=== PATIENT | male | born 1950 | race Caucasian/White ===

== ENCOUNTER 2017-11-11 15:52 | Emergency (ER) | payer MEDICARE ==
[~2017-11-11] VITALS: Ht 177.8 cm; Wt 74.8 kg
[2017-11-11 19:03] VITALS: BP 116/66
[2017-11-11] MEDS ORDERED: CEPH500C PO (19:16)
[2017-11-11] MEDS ORDERED: IBUP-1060 PO (19:19)
--- NOTE | 2017-11-11 19:19 | PHYS DOC ---
Past Medical History Past Medical History: No Pertinent History Past Surgical History: Hip Replacement, Other Additional Past Surgical Histo: BILATERAL HIP, LEFT KNEE Alcohol Use: None Drug Use: None Adult General Chief Complaint Chief Complaint: ABSCESS HPI HPI Patient is a 67 year old presents the ED complaining of left elbow swelling 1 week. States that he went to his primary care doctor's office and they gave him antibiotics. He did not get them filled. 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 Denies decreased ROM, weakness, paresthesias, fever, nausea/ vomiting, neck pain, chest pain or shortness of breath. Review of Systems Review of Systems Constitutional: Denies fever or chills [] Eyes: Denies change in visual acuity, redness, or eye pain [] HENT: Denies nasal congestion or sore throat [] Respiratory: Denies cough or shortness of breath [] Cardiovascular: No additional information not addressed in HPI [] GI: Denies abdominal pain, nausea, vomiting, bloody stools or diarrhea [] : Denies dysuria or hematuria [] Musculoskeletal: Complains of left elbow swelling. Denies back pain. Integument: Denies rash or skin lesions [] Neurologic: Denies headache, focal weakness or sensory changes [] All other systems were reviewed and found to be within normal limits, except as documented in this note. Allergies Allergies Allergies Coded Allergies Type Severity Reaction Last Updated Verified No Known Drug Allergies 11/11/17 No Physical Exam Physical Exam Constitutional: Well developed, well nourished, no acute distress, non-toxic appearance. [] HENT: Normocephalic, atraumatic Skin: Warm, dry, no erythema, no rash. [] Back: No tenderness, no CVA tenderness. [] Extremities: Swelling to left posterior elbow consistent with olecranon bursitis. No bony tenderness, no cyanosis, no clubbing, ROM intact, NV intact. no edema. [] Neurologic: Alert and oriented X 3, normal motor function, normal sensory function, no focal deficits noted. [] Psychologic: Affect normal, judgement normal, mood normal. [] Current Patient Data Vital Signs Vital Signs Date Time Temp Pulse Resp B/P (MAP) Pulse Ox O2 Delivery O2 Flow Rate FiO2 11/11/17 19:03 99.7 104 18 116/66 (83) 97 Room Air 99.7 EKG EKG [] Radiology/Procedures Radiology/Procedures [] Course & Med Decision Making Course & Med Decision Making Pertinent Labs and Imaging studies reviewed. (See chart for details) []Olecranon bursitis on exam. FROM,. NV intact. No abscess or systemic symptoms. Will prescribe Keflex outpatient. Morris wrap placed. Neurovascular intact post placement. Discussed symptomatic treatment and follow-up with orthopedics for further evaluation this week. Provided contact information/ education. Discussed reasons to return to the ED. Patient understands and agrees with plan. Attending physician evaluated patient and agrees with evaluation and plan. ER PHYSICIAN ATTENDING NOTE: I have personally seen and examined the patient, and agree with the history and physical, as documented by mid-level provider. The patient exhibits signs of olecranon bursitis without any suggestion or evidence of abscess or septic bursitis Dragon Disclaimer Dragon Disclaimer This electronic medical record was generated, in whole or in part, using a voice recognition dictation system. Departure Departure Impression: Primary Impression: Olecranon bursitis Disposition: HOME, SELF-CARE Condition: IMPROVED Referrals: SEE VILLARREAL (PCP) Patient Instructions: Olecranon Bursitis Scripts Ibuprofen (IBUPROFEN) 800 Mg Tablet 800 MG PO PRN Q6HRS PRN for INFLAMMATION, #14 TAB Prov: LULI MSITH 11/11/17 Cephalexin (CEPHALEXIN) 500 Mg Capsule 1 CAP PO QID for 10 Days, #40 CAP Prov: LULI SMITH 11/11/17 LULI SMITH Nov 11, 2017 19:19 SAUMYA OBRIEN MD Nov 12, 2017 04:06
== END 2017-11-11 19:27 | disposition home or self-care (01) ==
LOC: ER 15:52
DX: M70.22 Olecranon bursitis, left elbow (principal); Y93.89 Activity, other specified
CPT/HCPCS: 99283

== ENCOUNTER 2019-04-28 05:51 | Emergency (ER) | payer MEDICARE ==
[~2019-04-28] VITALS: Ht 177.8 cm; Wt 75.0 kg
[~2019-04-28 05:51] MED LIST: CEPH500C PO; IBUP-1060 PO
--- NOTE | 2019-04-28 06:54 | PHYS DOC ---
Past Medical History Past Medical History: No Pertinent History Past Surgical History: Hip Replacement, Other Additional Past Surgical Histo: BILATERAL HIP, LEFT KNEE Alcohol Use: None Drug Use: None Adult General Chief Complaint Chief Complaint: KNEE INJURY [facility] HPI Patient is a 68 year old male presented to ER today for evaluation of left knee pain. Patient said he was walking last night and slipped , fell down on his left knee. Patient complaints of left knee pain ever since. Patient denies any head or neck injury, no hip pain, no pelvic pain, no back pain. All other ROS is negative unless otherwise noted in HPI Review of Systems Review of Systems See above Current Medications Current Medications Current Medications Medications (Trade) Dose Ordered Sig/Dalia Start Time Stop Time Status Last Admin Dose Admin Acetaminophen (Tylenol) 1,000 mg 1X ONCE 04/28/19 08:30 04/28/19 08:31 DC 04/28/19 08:47 1,000 MG Ibuprofen (Motrin) 600 mg 1X ONCE 04/28/19 08:30 04/28/19 08:31 DC 04/28/19 08:48 600 MG Ondansetron HCl (Zofran Odt) 4 mg 1X ONCE 04/28/19 08:30 04/28/19 08:31 DC 04/28/19 08:46 4 MG Allergies Allergies Allergies Coded Allergies Type Severity Reaction Last Updated Verified No Known Drug Allergies 11/11/17 No Physical Exam Physical Exam See above Constitutional: Well developed, well nourished, no acute distress, non-toxic appearance. [] HENT: Normocephalic, atraumatic, bilateral external ears normal, oropharynx moist, no oral exudates, nose normal. [] Eyes: PERRLA, EOMI, conjunctiva normal, no discharge. [] Neck: Normal range of motion, no tenderness, supple, no stridor. [] Cardiovascular:Heart rate regular rhythm, no murmur [] Lungs & Thorax: Bilateral breath sounds clear to auscultation [] Abdomen: Bowel sounds normal, soft, no tenderness, no masses, no pulsatile masses. [] Skin: Warm, dry, no erythema, no rash. [] Back: No tenderness, no CVA tenderness. [] Extremities: Left knee is mildly swollen, tender to palpation, no deformity noted, no hematoma, left knee joint is stable. Neurologic: Alert and oriented X 3, normal motor function, normal sensory function, no focal deficits noted. [] Psychologic: Affect normal, judgement normal, mood normal. [] Current Patient Data Vital Signs Vital Signs Date Time Temp Pulse Resp B/P (MAP) Pulse Ox O2 Delivery O2 Flow Rate FiO2 04/28/19 08:14 82 165/90 (115) 99 Room Air 04/28/19 07:10 98.3 18 98.3 EKG EKG [] Radiology/Procedures Radiology/Procedures [][facility] [address] [place] [address] IMAGING REPORT Signed PATIENT: MIKE DUEÑAS ACCOUNT: [id number] : 1950 LOCATION: ER AGE: 68 SEX: M EXAM STATUS: REG ER ORD. PHYSICIAN: WILLIAM HERNANDEZ DO REASON: fell last night on left knee, pain PROCEDURE: KNEE LEFT 3V 3 views left knee 04/28/2019 6:51 AM Indication: Trauma Comparison: Left knee radiographs December 08, 2017 Findings: No evidence of acute fracture or dislocation is identified. Total knee arthroplasty noted. Hardware appears stable in position without evidence of fracture or other hardware complication. No gross evidence of loosening is seen. Proximal fibular deformity is stable. Chondral calcification is similar. No gross joint effusion is identified. IMPRESSION: Stable postsurgical and posttraumatic changes without evidence of acute osseous abnormality Electronically signed by: Ryder Griffith MD (04/28/2019 7:54 AM) [id number] DICTATED and SIGNED BY: RYDER GRIFFITH MD DATE: 04/28/19 0754 Course & Med Decision Making Course & Med Decision Making Pertinent Labs and Imaging studies reviewed. (See chart for details) [] Dragon Disclaimer Dragon Disclaimer This electronic medical record was generated, in whole or in part, using a voice recognition dictation system. Departure Departure Impression: Primary Impression: Contusion of left knee Disposition: HOME, SELF-CARE Condition: STABLE Referrals: SEE VILLARREAL (PCP) follow up with your doctor next week. Patient Instructions: Contusion Additional Instructions: Thank you for visiting our Emergency Department. We appreciate you trusting us with your care. If any additional problems come up don't hesitate to return to visit us. Please follow up with your primary care provider so they can plan additional care if needed and know about the problem that you had. If symptoms worsen come back to the Emergency Department. Any concerning symptoms that start such as chest pain, shortness of air, weakness or numbness on one side of the body, running high fevers or any other concerning symptoms return to the ER. Scripts Oxycodone HCl/Acetaminophen (Percocet 5-325 mg Tablet) 1 Each Tablet 1 TAB PO PRN BID PRN for PAIN MDD 2 Tablet(s) for 2 Days, #5 TAB 0 Refills Prov: WILLIAM HERNANDEZ DO 04/28/19 Naproxen Sodium (ANAPROX DS) 550 Mg Tablet 1 TAB PO PRN BID PRN for PAIN for 15 Days, #30 TAB 0 Refills Prov: WILLIAM HERNANDEZ DO 04/28/19 WILLIAM HERNANDEZ DO Apr 28, 2019 06:54
--- NOTE | 2019-04-28 07:57 | RAD ---
3 views left knee 04/28/2019 6:51 AM Indication: Trauma Comparison: Left knee radiographs December 08, 2017 Findings: No evidence of acute fracture or dislocation is identified. Total knee arthroplasty noted. Hardware appears stable in position without evidence of fracture or other hardware complication. No gross evidence of loosening is seen. Proximal fibular deformity is stable. Chondral calcification is similar. No gross joint effusion is identified. IMPRESSION: Stable postsurgical and posttraumatic changes without evidence of acute osseous abnormality Electronically signed by: Ryder Ruiz MD (04/28/2019 7:54 AM) [id number]
[2019-04-28 08:14] VITALS: BP 165/90
[2019-04-28] MEDS ORDERED: NAPR-682 PO (08:20)
[2019-04-28] MEDS ORDERED: ONDANSETRON ODT 4 MG TAB.RAPDIS. PO ONE (08:30)
[2019-04-28] MEDS ORDERED: ACETAMINOPHEN 500 MG TABLET PO ONE (08:30)
[2019-04-28] MEDS ORDERED: IBUPROFEN 200 MG TABLET. PO ONE (08:30)
[2019-04-28] MEDS ORDERED: OXYC-325 PO (09:12)
== END 2019-04-28 08:50 | disposition home or self-care (01) ==
LOC: ER 05:51
DX: S80.02XA Contusion of left knee, initial encounter (principal); R00.2 Palpitations; Z98.890 Other specified postprocedural states; W01.0XXA Fall on same level from slipping, tripping and stumbling without subsequent striking against object, initial encounter; Y93.89 Activity, other specified; Y92.89 Other specified places as the place of occurrence of the external cause; Y99.8 Other external cause status
CPT/HCPCS: 29505; 73562; 99284; Q0162

== ENCOUNTER 2019-10-28 18:53 | Emergency (ER) | payer MEDICARE ==
[~2019-10-28 18:53] MED LIST changes: +NAPR-682 PO; +OXYC-325 PO
== END 2019-10-28 21:14 | disposition left against medical advice (07) ==
LOC: ER 18:53
DX: K64.9 Unspecified hemorrhoids (principal); K62.89 Other specified diseases of anus and rectum; Z53.21 Procedure and treatment not carried out due to patient leaving prior to being seen by health care provider

== ENCOUNTER 2019-11-18 16:43 | Emergency (ER) | payer MEDICARE ==
[~2019-11-18] VITALS: Ht 170.2 cm; Wt 73.6 kg
[2019-11-18 18:55] VITALS: BP 121/87
--- NOTE | 2019-11-18 19:53 | RAD ---
Scrotal ultrasound 11/18/2019 CLINICAL HISTORY: Scrotal discomfort. TECHNIQUE: Using a combination of real-time ultrasound imaging and color-flow and pulse Doppler imaging techniques, duplex evaluation of the scrotal sac and its contents was performed. Multiple images were obtained. FINDINGS: Both testicles are within normal limits in size. The right testicle measures 4.4 x 2.8 x 2.3 cm in longitudinal, transverse, and AP dimensions. The left testicle measures 3.8 x 2.8 x 2.1 cm in size. Normal color-flow and pulse Doppler imaging to both testicles is seen. A rounded anechoic structure is seen within the mid/inferior aspect of the right testicle which measures 5 mm in greatest diameter. This is consistent with a testicular cyst. No abnormality of the left testicle is seen. Both epididymal heads are within normal limits in size. A oval-shaped anechoic structure seen within the right epididymal head which measures 8 mm in greatest diameter. This is consistent with a cyst. No abnormality of the left epididymal head is seen. There are small bilateral hydroceles. Small bilateral varicoceles are seen. IMPRESSION: 1. 5 mm cyst is seen involving the right testicle. 2. . 8 mm cyst is seen involving the right epididymal head. 3. . Small bilateral hydroceles. 4. Small bilateral varicoceles. Electronically signed by: Americo Luna MD (11/18/2019 7:50 PM) [id number]
--- NOTE | 2019-11-18 20:01 | PHYS DOC ---
Past Medical History Past Medical History: High Cholesterol, Hypertension Past Surgical History: Hip Replacement, Other Additional Past Surgical Histo: BILATERAL HIP, LEFT KNEE, LEFT HAND, LEFT FEMUR, Smoking Status: Current Every Day Smoker Alcohol Use: None Drug Use: None General Adult EDM: Chief Complaint: HEMORRHOIDS HPI: HPI: Patient is a 69 year old male who presents to the emergency department with complaints of hemorrhoids. He states he has a history of hemorrhoids and complains of rectal pain. He denies any rectal bleeding, constipation, diarrhea, abdominal pain, nausea, vomiting, dysuria, hematuria, or difficulty voiding. The patient does report having some scrotal tenderness, he denies any swelling, erythema, or warmth to to his scrotum, he denies any bulging in his groin. The patient denies any fever, cough, shortness of breath, nausea, vomiting, or abdominal pain. He currently rates his rectal discomfort a 10 out of 10 on the pain scale and describes it as burning between his buttocks. The patient requests that someone help him apply his preparation H. Review of Systems: Review of Systems: Constitutional: Denies fever or chills. [] HENT: Denies nasal congestion or sore throat. [] Respiratory: Denies cough or shortness of breath. [] Cardiovascular: Denies chest pain or edema. [] GI: Denies abdominal pain, nausea, vomiting, bloody stools or diarrhea; see HPI. [] : Denies dysuria; see HPI. [] Musculoskeletal: Denies back pain or joint pain. [] Integument: Denies rash. [] Neurologic: Denies headache Psychiatric: Denies depression or anxiety. [] Heart Score: Risk Factors: Risk Factors: DM, Current or recent (<one month) smoker, HTN, HLP, family history of CAD, obesity. Risk Scores: Score 0 - 3: 2.5% MACE over next 6 weeks - Discharge Home Score 4 - 6: 20.3% MACE over next 6 weeks - Admit for Clinical Observation Score 7 - 10: 72.7% MACE over next 6 weeks - Early Invasive Strategies Allergies: Allergies: Allergies Coded Allergies Type Severity Reaction Last Updated Verified No Known Drug Allergies 11/11/17 No Physical Exam: PE: Constitutional: Well developed, well nourished, no acute distress, non-toxic appearance. [] HENT: Normocephalic, atraumatic, bilateral external ears normal, nose normal. [] Eyes: PERRLA, conjunctiva normal, no discharge. [] Neck: Normal range of motion, no stridor. [] Cardiovascular:Heart rate regular rhythm Lungs & Thorax: Respirations even and unlabored, no retractions, no respiratory distress Abdomen: Bowel sounds normal, soft, no tenderness, no masses, no pulsatile masses. 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 Stool: Brown Guaiac: Deferred : Circumcised, no erythema, no abnormal discharge urethra appears normal, no palpable hernia in either inguinal canal; patient reports pain to his testicles, there is no erythema or swelling noted to his scrotum. Skin: Warm, dry, no erythema, no rash. [] Back: No tenderness Extremities: No cyanosis, ROM intact, no edema. [] Neurologic: Alert and oriented X 3, no focal deficits noted. [] Psychologic: Affect normal, judgement normal, mood normal. [] Current Patient Data: Vital Signs: Vital Signs Date Time Temp Pulse Resp B/P (MAP) Pulse Ox O2 Delivery O2 Flow Rate FiO2 11/18/19 16:55 98.7 99 20 111/73 (86) 98 Room Air 98.7 EKG: EKG: [] Radiology/Procedures: Radiology/Procedures: PROCEDURE: TESTICULAR/SCROTUM Scrotal ultrasound 11/18/2019 CLINICAL HISTORY: Scrotal discomfort. TECHNIQUE: Using a combination of real-time ultrasound imaging and color-flow and pulse Doppler imaging techniques, duplex evaluation of the scrotal sac and its contents was performed. Multiple images were obtained. FINDINGS: Both testicles are within normal limits in size. The right testicle measures 4.4 x 2.8 x 2.3 cm in longitudinal, transverse, and AP dimensions. The left testicle measures 3.8 x 2.8 x 2.1 cm in size. Normal color-flow and pulse Doppler imaging to both testicles is seen. A rounded anechoic structure is seen within the mid/inferior aspect of the right testicle which measures 5 mm in greatest diameter. This is consistent with a testicular cyst. No abnormality of the left testicle is seen. Both epididymal heads are within normal limits in size. A oval-shaped anechoic structure seen within the right epididymal head which measures 8 mm in greatest diameter. This is consistent with a cyst. No abnormality of the left epididymal head is seen. There are small bilateral hydroceles. Small bilateral varicoceles are seen. IMPRESSION: 1. 5 mm cyst is seen involving the right testicle. 2. . 8 mm cyst is seen involving the right epididymal head. 3. . Small bilateral hydroceles. 4. Small bilateral varicoceles. [] Course & Med Decision Making: Course & Med Decision Making Pertinent Labs and Imaging studies reviewed. (See chart for details) 1952-patient refuses to wait for ultrasound reports. He is unable to give a urine specimen. Patient states he wants to leave AGAINST MEDICAL ADVICE he refuses to stay for any further treatment. Patient given AMA paperwork by RN and signed out. [] Linda Disclaimer: Linda Disclaimer: This electronic medical record was generated, in whole or in part, using a voice recognition dictation system. Departure Departure Impression: Primary Impression: Left against medical advice Disposition: 07 AGAINST MEDICAL ADVICE Condition: STABLE Referrals: STEPHANY YE (PCP) Justicifation of Admission Dx: Justifications for Admission: Justification of Admission Dx: N/A KANE HANLEY APRN Nov 18, 2019 20:01
== END 2019-11-18 19:54 | disposition left against medical advice (07) ==
LOC: ER 16:43
DX: K62.89 Other specified diseases of anus and rectum (principal); E78.00 Pure hypercholesterolemia, unspecified; I10 Essential (primary) hypertension; F17.200 Nicotine dependence, unspecified, uncomplicated; Z98.890 Other specified postprocedural states
CPT/HCPCS: 76870; 99284

== ENCOUNTER 2019-12-21 14:06 | Emergency (ER) | payer MEDICARE ==
[~2019-12-21] VITALS: Ht 172.7 cm; Wt 160.0 kg
[2019-12-21 14:25] VITALS: BP 130/91
--- NOTE | 2019-12-21 14:51 | PHYS DOC ---
Past Medical History Past Medical History: High Cholesterol, Hypertension Past Surgical History: Hip Replacement, Other Additional Past Surgical Histo: BILATERAL HIP, LEFT KNEE, LEFT HAND, LEFT FEMUR, Smoking Status: Current Every Day Smoker Alcohol Use: None Drug Use: None General Adult EDM: Chief Complaint: HEMORRHOIDS HPI: HPI: 69-year-old male who presents for the evaluation of possible hemorrhoid pain. This is been present for several months he states. He has a surgeon that he is scheduled to follow-up with [facility]. The patient initially refused to be seen by male physician, specifically requesting a female physician. However, patient was ultimately amenable to be evaluated by me. No abdominal pain, nausea or vomiting. Review of Systems: Review of Systems: Gen: No fever, chills. CV: No CP, palpitations. Resp. No SOB, cough. GI: No abd pain, N/V. : No dysuria, hematuria. Reports perianal pain. Neuro: No DONNELLY, dizziness, weakness. Remainder of systems reviewed and negative unless otherwise specified. Heart Score: Risk Factors: Risk Factors: DM, Current or recent (<one month) smoker, HTN, HLP, family history of CAD, obesity. Risk Scores: Score 0 - 3: 2.5% MACE over next 6 weeks - Discharge Home Score 4 - 6: 20.3% MACE over next 6 weeks - Admit for Clinical Observation Score 7 - 10: 72.7% MACE over next 6 weeks - Early Invasive Strategies Allergies: Allergies: Allergies Coded Allergies Type Severity Reaction Last Updated Verified No Known Drug Allergies 11/11/17 No Physical Exam: PE: Gen: NAD. Well nourished. Head: NC/AT. Eyes: No scleral icterus. No conjunctival injection. ENT: MMM. Neck: Supple. CV: RRR. Peripheral pulses intact. Resp: CTAB. Abd: Soft. NT. ND. : Tiny nontender, nonthrombosed external hemorrhoid. No perianal or perirectal induration or fluctuance. No scrotal tenderness or swelling. No perineal rash. MSK: No peripheral cyanosis. Neuro: Awake and alert. Skin. Warm. Dry. Psych: Appropriate mood & affect. EKG: EKG: [] Radiology/Procedures: Radiology/Procedures: [] Course & Med Decision Making: Course & Med Decision Making Pertinent Labs and Imaging studies reviewed. (See chart for details) In summary, 69-year-old male who presents for evaluation of anal pain present for several months, found to have a tiny non-thrombosed external hemorrhoid. I was going to prescribe anusol for the patient with outpatient F/U. Though the patient left abruptly after my initial assessment. Left prior to receiving DC paperwork and Rx. Linda Disclaimer: Linda Disclaimer: This electronic medical record was generated, in whole or in part, using a voice recognition dictation system. Departure Departure Impression: Primary Impression: Perianal pain Disposition: 01 HOME, SELF-CARE Condition: STABLE Referrals: STEPHANY YE (PCP) Justicifation of Admission Dx: Justifications for Admission: Justification of Admission Dx: N/A DENIS ROMERO DO Dec 21, 2019 14:51
== END 2019-12-21 14:51 | disposition home or self-care (01) ==
LOC: ER 14:06
DX: K62.89 Other specified diseases of anus and rectum (principal); E78.00 Pure hypercholesterolemia, unspecified; I10 Essential (primary) hypertension; F17.200 Nicotine dependence, unspecified, uncomplicated; Z98.890 Other specified postprocedural states
CPT/HCPCS: 99281

== ENCOUNTER → 2020-01-20 | Emergency (ER) | payer MEDICARE ==
[2019-12-21 14:25] VITALS: BP 130/91
== END ==
LOC: ER 13:35
DX: R10.30 Lower abdominal pain, unspecified (principal); Z53.21 Procedure and treatment not carried out due to patient leaving prior to being seen by health care provider

== ENCOUNTER → 2020-01-25 | Outpatient (CLI) | payer MEDICARE ==
--- NOTE | 2020-01-25 09:05 | RAD ---
Examination: ABDOMEN COMPLETE History: Reason: RLQ PAIN / Spl. Instructions: / History: Comparison/Correlation: None Findings: Upper abdominal ultrasound exam was performed. Fatty infiltration of the liver is present gallbladder is unremarkable. No cholelithiasis or findings of cholecystitis. Common bile duct is unremarkable. Portal vein was not imaged for this exam. Right kidney measures 9.2 cm x 5.1 cm x 4.3 cm . Left kidney measures 8 cm x 4.5 cm x 2.4 cm. Bilateral renal cysts are present. The largest on the right measures 3.1 cm diameter and is a simple cyst. Internal echoes within left renal cysts noted. A cyst measuring 1.8 cm diameter and additional cyst measuring 1.4 cm diameter are present. Renal echotexture is borderline bilaterally. No hydronephrosis. The proximal pancreas is normal. Distal pancreas is obscured by bowel gas. Spleen is unremarkable. Bowel gas in the right lower quadrant is present obscuring evaluation. There is no fluid-filled tubular structure visualized in the right lower quadrant. Inferior vena cava is unremarkable. Atheromatous involvement of the abdominal aorta noted. No upper abdominal ascites. Impression: Fatty infiltration of the liver. Mild renal atrophy. No hydronephrosis. Complicated left renal cysts. These probably represent hemorrhagic cysts or proteinaceous cyst. Interval follow-up ultrasound exam in one year to assess stability may be performed. No right lower quadrant suspicious finding. Further evaluation with CT with contrast exam is recommended if appendicitis is a concern. Electronically signed by: Westley Nayak MD (01/25/2020 9:02 AM) [id number]
--- NOTE | 2020-01-25 09:43 | RAD ---
Examination: TESTICULAR/SCROTUM History: Reason: RLQ PAIN/TESTICLE PAIN / Spl. Instructions: / History: Comparison/Correlation: 11/18/2019 testicular ultrasound Findings: Scrotal ultrasound examination was performed. Right testicle measures 3.8 cm x 2.9 cm x 2.5 cm. Left testicle measures 3.7 cm x 2.6 x 2 cm. Right epididymal 0.7 cm diameter cyst or hydroceles present. No evidence of unremarkable. Right testicular cyst measuring up to 0.5 cm diameter is again seen within the center of the testicle. Smaller cysts at the upper pole level measuring 0.2 cm diameter is present. Normal testicular flow bilaterally is present with no evidence of torsion. There is no finding of epididymitis or orchitis. Cystic structure within the superior aspect of the left scrotal sac is present measuring 0.5 cm diameter. No suspicious solid component. Small right hydrocele present. Impression: No evidence of torsion or epididymoorchitis. No suspicious mass. Small right hydrocele. Electronically signed by: Westley Nayak MD (01/25/2020 9:40 AM) [id number]
== END ==
LOC: US 09:15
DX: N43.2 Other hydrocele (principal); L72.8 Other follicular cysts of the skin and subcutaneous tissue; N28.1 Cyst of kidney, acquired; N26.1 Atrophy of kidney (terminal)
CPT/HCPCS: 76700; 76870

== ENCOUNTER 2020-09-20 10:25 | Emergency (ER) | payer MEDICARE | END 2020-09-20 10:34 | disposition left against medical advice (07) | LOC: ER 10:25 | DX: K64.9 Unspecified hemorrhoids (principal); Z53.21 Procedure and treatment not carried out due to patient leaving prior to being seen by health care provider ==